=== PATIENT | female | born 1995 | race Two or more races ===

== ENCOUNTER 2017-04-07 18:11 | Emergency (ER) | payer BC, SELFPAY ==
[2017-04-07 18:13] VITALS: BP 135/83; PULSE 100; RESP 16; TEMP 36.7; O2SAT 100; BMI 19.3
--- NOTE | 2017-04-07 18:59 | ED.DCSUM_ITS ---
- ER Visit Summary Date of Service: 04/07/17 Chief Complaint: Left eye pain and redness History of Present Illness: The patient is a 21 F who presents for left eye pain and redness after sleeping with her contacts in last night. Patient states that she forgot to take them out, and took them out when she got up today. Her left contact was dry, and she did not have any immediate pain. However now she is developed a foreign body sensation, pain worse with blinking , and redness to the eye. She also feels like she is seeing spots of light. No fever, periorbital pain or swelling. No history of trauma other than the contact. Physical Examination: There is a well-developed in no distress. Left eye has diffuse conjunctival injection, mild. Pupils equal round reactive to light. Extraocular movement intact. No pain with movement. No foreign body with lid eversion. No periorbital swelling, erythema or rash. Visual acuity is 20/30 0D, OS, OU. Test Results: [] Emergency Department Course and Treatment: Patient's history is consistent with a corneal abrasion secondary to removal of a dry contact. The slit lamp was not functioning properly, and thus patient I could not be examined under magnification with fluorescein stain. Gross examination with a blue light and fluorescein stain did not show any uptake, however I cannot rule out a small abrasion. Patient had no other concerning findings on her eye examination. She will not wear contacts until her eye has fully healed. She was given prescription for erythromycin ointment. She is to follow-up with her eye doctor if she has any further concerns. Patient discharged home. Treatment Plan: [] Disposition: [] Impression: Left corneal abrasion secondary to contact removal This note was generated with [employer] dictation software. It may contain incorrect words, spelling, and punctuation that were not noted in review of the chart prior to signing ED Disposition - Plan for ED Patient: Disposition: Home or Assisted Living Chief Complaint: Eye Problem Instructions: ED Corneal Injury Contact Lens Referrals: Cali Eaton MD [Primary Care Provider] - 1-2 Days if not improving Additional Instructions: Do not wear your contact lenses until your eye has healed. Use the erythromycin ointment to help soothe your eye and prevent infection. If you have any worsening of your condition or any new concerning symptoms, please come back immediately to the emergency department for another evaluation. Please follow-up with your eye doctor for a reevaluation of your eye later this week if you do not have complete resolution of your redness and irritation.
[2017-04-07] MEDS: Fluorescein 1 MG STRIP 1 STRIP LEFT EYE (19:16)
[2017-04-07] MEDS: Tetracaine 0.5% Ophthalmic Bottle 1 DRP LEFT EYE (19:16)
--- NOTE | 2017-04-07 19:48 | ED.DEP ---
ED Disposition - Plan for ED Patient: Disposition: Home or Assisted Living Chief Complaint: Eye Problem Instructions: ED Corneal Injury Contact Lens Referrals: Cali Eaton MD [Primary Care Provider] - 1-2 Days if not improving Additional Instructions: Do not wear your contact lenses until your eye has healed. Use the erythromycin ointment to help soothe your eye and prevent infection. If you have any worsening of your condition or any new concerning symptoms, please come back immediately to the emergency department for another evaluation. Please follow-up with your eye doctor for a reevaluation of your eye later this week if you do not have complete resolution of your redness and irritation.
[2017-04-07] MEDS: Erythromycin Base 1 OPTH.TUBE 1 APPLIC LEFT EYE (19:57)
== END 2017-04-07 20:02 | disposition home or self-care (01) ==
PROVIDERS: Emergency Provider Emergency Medicine; Family Provider Pediatrics; PCP Pediatrics
DX: H18.822 Corneal disorder due to contact lens, left eye (principal)
CPT/HCPCS: 99283

== ENCOUNTER 2018-10-01 22:30 | Emergency (ER) | payer OTHER, SELFPAY ==
[2018-10-01 22:31] VITALS: BP 148/88; PULSE 103; RESP 18; TEMP 36.6; O2SAT 97; BMI 19.7
--- NOTE | 2018-10-02 00:01 | ED.VIS.GEN ---
History of Present Illness Chief Complaint: Eye Problem Informant: Patient Onset: Days - 2 Narrative: Itching swelling to eyelids bilaterally for last 2 days. No vision changes no pain. Wears glasses, no changes in his wash or make-up. Had similar symptoms multiple times in the past most recently a year ago. Provide antibiotic ointment which helped. Denies headache. No other complaints. Prior similar symptoms: Yes Past Medical History - Allergies and Home Meds Allergies/Adverse Reactions: Allergies acetaminophen [From Tylenol] Adverse Reaction (Verified 04/07/17 18:15) Nausea/Vom/Diarrhea Primary Care Physician: NOT,DEFINED [Primary Care Provider] - Smoking Status: Never smoker Review of Systems All systems negative except as indicated General: Denies: Chills, Fever, Sweats Eyes: Denies: Visual changes - bilaterally, Diplopia ENT: Denies: Rhinorrhea, Sore throat Cardiovascular: Denies: Chest pain, Palpitations Respiratory: Denies: Dyspnea, Cough, Dyspnea on exertion Gastrointestinal: Denies: Abdominal pain, Nausea, Vomiting, Diarrhea, Melena, Hematochezia Genitourinary: Denies: Dysuria, Hematuria, Frequency Musculoskeletal: Denies: Back pain, Extremity Pain Skin: Denies: Rash, Wounds Neurological: Denies: Headache, Weakness, Numbness Physical Exam Vital Signs/Narrative: Vital Signs Temp Pulse Resp BP Pulse Ox 10/01/18 22:31 98 F 103 H 18 148/88 H 97 Inital Vital Signs reviewed: Yes General: Well nourished, Well developed, No Acute Distress Head: Normocephalic, Atraumatic Eyes: Perrl, EOMI, - - Slight swelling bilateral upper and lower lids bilaterally. No drainage. No scleral erythema. ENT: Moist mucous membranes, No rhinorrhea Neck: Supple, Nontender Cardiovascular: Regular rate, Regular rhythm, No murmurs Respiratory: No distress, CTA bilaterally, Chest nontender Abdomen: Soft, Nontender, Nondistended, Normal bowel sounds Back: Nontender, Normal Inspection Extremities: Nontender, No edema Skin: Normal color, No rash Neurological: Alert, Oriented x3, Cranial nerves II-XII grossly intact, Normal Strength, Normal Sensation Psychological: Normal affect, Normal Mood Diagnostic/Tx/Re-eval - Medical Decision Making Patient no eye pain or visual changes. Exam concerns for recurrent blepharitis bilaterally. Provided antibiotic ointment for eyes, pharmacy filled here and dispense. Given follow-up as an outpatient. All questions were answered. ED Disposition - Plan for ED Patient: Disposition: Home or Assisted Living Diagnosis: Blepharitis of both eyes Instructions: Blepharitis, Treating Blepharitis: Self-Care Prescriptions: Bacitracin Opthalmic 1 applic EACH EYE BID #1 opth.tube Referrals: NOT,DEFINED [Primary Care Provider] - Alexia Swartz MD [STAFF PHYSICIAN] - 3-5 Days if not improving
--- NOTE | 2018-10-02 00:02 | ED.RN ---
DR. CARR SAID THAT [facility] DIDN'T NEED DONE SHE IS HAVING SYMPTOMS ON THE SKIN AROUND HER EYE.
== END 2018-10-02 00:30 | disposition home or self-care (01) ==
LOC: ED 10-02 00:25
PROVIDERS: Emergency Provider Emergency Medicine
DX: H01.00B Unspecified blepharitis left eye, upper and lower eyelids (principal); H01.00A Unspecified blepharitis right eye, upper and lower eyelids
CPT/HCPCS: 99282